=== PATIENT | male | born 1950 | race Caucasian/White ===

== ENCOUNTER 2017-04-10 09:44 | Emergency (ER) | payer BC ==
[~2017-04-10] VITALS: Ht 193 cm; Wt 100.0 kg
[~2017-04-10 09:44] MED LIST: ADDERALL30 MG PO; ALLOPURINOL100 MG PO; AUGMENTIN875TAB PO; BACTROBAN TOP; CEFDINIR300 MG PO; CLINDAMYCIN150 MG PO; DIOVAN320 MG PO; ELIMITE5 % EX; MAXZIDE1 TAB PO; MULTIVITAMI1 PO; ROCEPHIN 1 GM1 GM IM; TRAMADOL HCL50 MG PO; VITAMIN C500 M6 PO; VITAMIN E; [UNRECOGNIZED DRUG - OTHER]
[2017-04-10 09:50] VITALS: BP 129/88
[2017-04-10] MEDS ORDERED: AMOXICILLIN500 MG PO (11:02)
== END 2017-04-10 11:26 | disposition home or self-care (01) | DRG 605 ==
LOC: ED 09:44
PROC: 0HQGXZZ Repair Left Hand Skin, External Approach (ICD-10-PCS; principal; 2017-04-10)
DX: S61.211A Laceration without foreign body of left index finger without damage to nail, initial encounter (principal); I10 Essential (primary) hypertension; F32.9 Major depressive disorder, single episode, unspecified; M10.9 Gout, unspecified; F90.9 Attention-deficit hyperactivity disorder, unspecified type; W26.8XXA Contact with other sharp object(s), not elsewhere classified, initial encounter; Y93.H3 Activity, building and construction; Y92.008 Other place in unspecified non-institutional (private) residence as the place of occurrence of the external cause